=== PATIENT | male | born 1965 | race Caucasian/White ===

== ENCOUNTER 2022-05-24 08:02 | Outpatient (CLI) | payer MEDICARE, BC ==
[2022-05-24] MEDS ORDERED: Iopamidol 370 76% 100 ML VIAL ONE (11:34)
== END 2022-05-24 08:03 | disposition home or self-care (01) ==
LOC: BICCT 08:02
PROVIDERS: ATTEND Physician Assistant Medical
DX: R10.11 Right upper quadrant pain (principal); R93.2 Abnormal findings on diagnostic imaging of liver and biliary tract; R63.4 Abnormal weight loss; C22.8 Malignant neoplasm of liver, primary, unspecified as to type; R59.0 Localized enlarged lymph nodes; N28.1 Cyst of kidney, acquired; N20.0 Calculus of kidney
CPT/HCPCS: 74170; 82565; Q9967

== ENCOUNTER 2022-05-31 07:23 | Outpatient (CLI) | payer MEDICARE, BC ==
[2022-05-31] MEDS ORDERED: Iopamidol 370 76% 100 ML VIAL ONE (14:06)
== END 2022-05-31 07:24 | disposition home or self-care (01) ==
LOC: CT 07:23
PROVIDERS: ATTEND Internal Medicine Gastroenterology
DX: R93.2 Abnormal findings on diagnostic imaging of liver and biliary tract (principal); R13.10 Dysphagia, unspecified; R10.13 Epigastric pain; K76.9 Liver disease, unspecified; J43.2 Centrilobular emphysema; J70.4 Drug-induced interstitial lung disorders, unspecified; R59.0 Localized enlarged lymph nodes
CPT/HCPCS: 71260; Q9967

== ENCOUNTER 2022-06-08 08:27 | Outpatient (CLI) | payer MEDICARE, BC ==
[2022-06-08 08:35] LABS: #Basophils 0.1 thou/uL (0.0-0.2); #Eosinphils 0.2 thou/uL (0.0-0.7); #Monocytes 0.5 thou/uL (0.11-0.59); #Neutrophils 4.4 thou/uL (1.40-6.50); %Eosinophils 2.8 % (0.0-10.0); %Lymphocytes 27.7 % (21.0-51.0); %Monocytes 7.4 % (0.0-10.0); %Neutrophils 61.2 % (42.0-75.0); Hemoglobin 16.1 g/dL (14.0-18.0); Mean Corpuscular HGB CONC 34.3 g/dL (32.0-36.0); Mean Corpuscular Hemoglobin 33.4 pg (27.0-31.0); Mean Corpuscular Volume 97.4 fl (78.0-98.0); Mean Platelet Volume 5.9 fL (7.4-10.4); Platelet Count 464 10x3/uL (130-400); RBC Distribution Width 11.8 % (11.5-14.5); Red Blood Cell (RBC) Count 4.82 mill/uL (4.70-6.10); White Blood Cell (WBC) Count 7.2 10x3/uL (4.8-10.8)
[2022-06-08 10:18] VITALS: BP 119/73; TEMP 98.9
[2022-06-08 10:32] LABS: PTT 30.9 sec (22.9-36.1); Prothrombin Time 13.1 sec (12.0-14.7)
== END 2022-06-08 08:28 | disposition home or self-care (01) ==
LOC: CT 08:27
PROVIDERS: ATTEND Internal Medicine Gastroenterology
DX: Z01.818 Encounter for other preprocedural examination (principal); R10.13 Epigastric pain; R13.10 Dysphagia, unspecified; K76.9 Liver disease, unspecified; R93.2 Abnormal findings on diagnostic imaging of liver and biliary tract; F41.9 Anxiety disorder, unspecified
CPT/HCPCS: 76380; 85025; 85610; 85730